=== PATIENT | male | born 1985 | race Caucasian/White ===

== ENCOUNTER 2019-03-20 09:13 | Emergency (ER) | payer OTHER, SELFPAY ==
[2019-03-20 09:20] VITALS: BP 148/72; PULSE 71; RESP 18; TEMP 36.7; O2SAT 98; BMI 28.3
--- NOTE | 2019-03-20 09:29 | ED.MALEGU ---
HPI - Male Genitourinary General Chief complaint: Urogenital-Male Stated complaint: groin hernia today Time Seen by Provider: 03/20/19 09:18 Source: patient Mode of arrival: ambulatory Limitations: no limitations History of Present Illness HPI Narrative: 34-year-old otherwise healthy male here for evaluation a bulge in his right groin. Patient states he was going down some stairs last night and felt a ?twinge? in his right groin area and since then has had a bulge. No urinary symptoms. Has not had a bowel movement since the onset of the symptoms. No fevers. 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 Review of Systems Constitutional Constitutional: Denies fever(s) Cardiovascular Cardiovascular: Denies dyspnea Respiratory Respiratory: Denies dyspnea Gastrointestinal Comments: Bulge in the right groin Genitourinary Genitourinary: Denies dysuria, Denies flank pain, Denies testicular mass and Denies testicular pain Comments: Bulging the right groin Musculoskeletal Musculoskeletal: Denies myalgias and Denies arthralgias Integumentary/Breasts Skin/Breast: Denies rash Neurologic Neurologic: Denies behavioral changes Psychiatric Psychiatric: Denies behavioral changes Hematologic/Lymphatic Hematologic/Lymphatic: Denies easy bleeding and Denies easy bruising [facility] Medical History Patient denies medical problems (Acute) Social History (Updated 03/20/19 @ 09:43 by Joaquin Ramsay DO) lives independently: Yes Smoking Status: Never smoker Social History (Updated 03/20/19 @ 09:43 by Joaquin Ramsay DO) lives independently: Yes Smoking Status: Never smoker Exam Initial Vital Signs Initial Vital Signs: Vital Signs Temperature 98.1 F 03/20/19 09:20 Pulse Rate 71 03/20/19 09:20 Respiratory Rate 18 03/20/19 09:20 Blood Pressure 148/72 H 03/20/19 09:20 Pulse Oximetry 98 03/20/19 09:20 Const General: cooperative Orientation: alert and awake HENMT Head: normal to inspection and normocephalic Resp Effort & Inspection: normal respiratory effort Auscultation: clear to auscultation bilaterally Cardio Rate: regular rate Rhythm: regular rhythm GI Other: Patient with reducible right inguinal hernia External: circumcised Penis: normal penis Scrotum: scrotum normal and inguinal hernia on the right Testes: testicular lie normal, no masses, no testicular mass, no testicular swelling and no testicular tenderness Skin Lesions: no lesions Rashes: no rashes Neuro General: alert and awake Cognition: normal cognition Speech: speech normal Extrem General: normal to inspection and capillary refill normal Psych Appearance: grossly normal and well kempt Course Vital Signs Vital signs: Vital Signs - 8 hr 03/20/19 09:20 Temperature 98.1 F Pulse Rate 71 Respiratory Rate 18 Blood Pressure 148/72 H Pulse Oximetry 98 MDM - Male Genitourinary MDM Narrative Medical decision making narrative: Patient does have physical exam consistent a right-sided inguinal hernia. It was reducible here in the emergency department. Low suspicion for incarceration/strangulation. Normally this would be treated as an outpatient with a surgical consultation however the patient is on a [employer] and is scheduled to spend the next several days/week out [place]. I did discuss the case with Dr. Rivas with General surgery who stated that he would take the patient the operating room however there would be postoperative restrictions. I did discuss these with the patient. We did discuss this with his company's medical office manager. This was after the patient gave us permission to talk with them about his condition. They stated that given the re-stricture in his postoperatively he would not be able to return to the ship. We had a long discussion regarding whether not we discharge the patient with the potential that he could potentially have a strangulation while out at [employer] requiring and [employer]ev[employer]. Versus sending the patient home to have it repaired. After this discussion the patient will be sent home to have this repaired to avoid any potential future issues. Patient's paperwork was filled out. He was made non fit for duty. Patient expressed understanding and agreement with plan. Discharge Plan Departure Patient Disposition: Home Clinical Impression: Inguinal hernia Qualifiers: Obstruction and gangrene presence: without obstruction or gangrene Laterality: unilateral Recurrence: not specified as recurrent Qualified Code(s): K40.90 - Unilateral inguinal hernia, without obstruction or gangrene, not specified as recurrent Instructions: Groin Hernia -- Adult Activity Restrictions/Additional Instructions: I do recommend that your sent home to be evaluated by your primary doctor and also a general surgeon to have this inguinal hernia repaired to avoid any potential complications [place].
[2019-03-20 11:07] VITALS: BP 132/74; PULSE 99; RESP 18; O2SAT 98
== END 2019-03-20 11:07 | disposition home or self-care (01) ==
PROVIDERS: Emergency Provider Emergency Medicine
DX: K40.90 Unilateral inguinal hernia, without obstruction or gangrene, not specified as recurrent (principal); Y99.0 Civilian activity done for income or pay
CPT/HCPCS: 99282